=== PATIENT | male | born 1935 | race Caucasian/White ===

== ENCOUNTER 2016-12-07 23:33 | Inpatient (IN) | payer OTHER, MEDICARE ==
[~2016-12-07] VITALS: Ht 182.9 cm; Wt 99.8 kg
[2016-12-08 00:32] LABS: BASOPHIL % 0.3 % (0-2); PLATELET COUNT 214 x10^3mcL (130-400); RED CELL DISTRIBUTION WIDTH 14.4 % (11.5-14.5)
[2016-12-08 00:42] LABS: CALCIUM 8.6 mg/dL (8.5-10.1); CARBON DIOXIDE 26.4 mmol/L (21-32); CHLORIDE SERUM 105 mmol/L (98-107); CREATININE SERUM 1.1 mg/dL (0.7-1.3); GLUCOSE SERUM 155 mg/dL (74-106); POTASSIUM SERUM 3.2 mmol/L (3.5-5.1); SODIUM SERUM 143 mmol/L (136-145)
[2016-12-08 00:53] LABS: ALBUMIN 3.4 g/dL (3.4-5.0); ALKALINE PHOSPHATASE 68 U/L (46-116); ALT/SGPT 20 U/L (16-63); AST/SGOT 19 U/L (15-37); BILIRUBIN TOTAL 0.4 mg/dL (0.20-1.00); C REACTIVE PROTEIN 0.5 mg/dL (<=0.9); TOTAL PROTEIN, SERUM 6.5 g/dL (6.4-8.2)
[2016-12-08 00:55] LABS: T3 TOTAL 1.02 ng/mL
[2016-12-08 01:03] LABS: FREE T4 0.97 ng/dL (0.76-1.46); FREE THYROXINE INDEX 2.5 ug/dL (1.4-4.5); T4(THYROXINE) 6.2 ug/dL (4.7-13.3)
[2016-12-08 01:04] LABS: CK-MB 4.3 ng/mL (0-3.6)
[2016-12-08 01:23] LABS: ERYTHROCYTE SED RATE 16 mm/hr (0-20)
[2016-12-08] MEDS ORDERED: TOPROL XL25 MG PO (02:08)
[2016-12-08] MEDS ORDERED: EC NAPROSYN500 MG PO (02:09)
[2016-12-08 02:31] LABS: BASOPHIL % 0.1 % (0-2); PLATELET COUNT 187 x10^3mcL (130-400); RED CELL DISTRIBUTION WIDTH 14.1 % (11.5-14.5)
[2016-12-08 04:02] LABS: MAGNESIUM 2.1 mg/dL (1.8-2.4); PHOSPHOROUS 3.8 mg/dL (2.5-4.9)
[2016-12-08 04:03] LABS: CHOLESTEROL/HDL RATIO 3.5
[2016-12-08 04:10] LABS: UA SPECIFIC GRAVITY >=1.030 (1.005-1.035); microscopic required? YES; urine erythrocyte NEGATIVE (NEGATIVE)
[2016-12-08 04:22] VITALS: BP 109/77
[2016-12-08 04:55] VITALS: BP 108/76
[2016-12-08 05:49] LABS: BASOPHIL % 0.3 % (0-2); PLATELET COUNT 172 x10^3mcL (130-400); RED CELL DISTRIBUTION WIDTH 14.1 % (11.5-14.5)
[2016-12-08 09:54] VITALS: BP 101/66
[2016-12-08 17:30] VITALS: BP 110/72
[2016-12-08 21:23] VITALS: BP 122/69
[2016-12-09 05:57] VITALS: BP 121/72
[2016-12-09 07:35] LABS: BASOPHIL % 0.4 % (0-2); PLATELET COUNT 165 x10^3mcL (130-400); RED CELL DISTRIBUTION WIDTH 14.2 % (11.5-14.5)
[2016-12-09 07:39] LABS: CARBON DIOXIDE 26.2 mmol/L (21-32); CHLORIDE SERUM 112 mmol/L (98-107); CREATININE SERUM 0.7 mg/dL (0.7-1.3); GLUCOSE SERUM 99 mg/dL (74-106); POTASSIUM SERUM 3.5 mmol/L (3.5-5.1); SODIUM SERUM 144 mmol/L (136-145)
[2016-12-09 09:57] VITALS: BP 123/70
[2016-12-09 10:28] VITALS: BP 131/72
[2016-12-09 11:29] VITALS: BP 131/72
[2016-12-09 14:05] VITALS: BP 154/80
[2016-12-09] MEDS ORDERED: BIA500 PO (14:19)
[2016-12-09] MEDS ORDERED: PEPL PO (14:20)
[2016-12-09] MEDS ORDERED: PRI20 PO (14:20)
[2016-12-09] MEDS ORDERED: LAC PO (14:21)
[2016-12-09] MEDS ORDERED: AMOXICILLIN500 M1 PO (14:21)
[2016-12-09 17:02] VITALS: BP 126/70
== END 2016-12-09 17:50 | disposition home or self-care (01) | DRG 377 ==
LOC: ED 23:33 → MU 12-08 01:44 → DU 12-08 01:44 → MU 12-09 14:13
PROVIDERS: Family Medicine; Internal Medicine Gastroenterology; Specialist; ADMIT Family Medicine
PROC: 0DB68ZX Excision of Stomach, Via Natural or Artificial Opening Endoscopic, Diagnostic (ICD-10-PCS; principal; 2016-12-08 12:00)
PROC: 0DJD8ZZ Inspection of Lower Intestinal Tract, Via Natural or Artificial Opening Endoscopic (ICD-10-PCS; 2016-12-09)
DX: K57.31 Diverticulosis of large intestine without perforation or abscess with bleeding (principal); J96.01 Acute respiratory failure with hypoxia; N17.0 Acute kidney failure with tubular necrosis; K63.3 Ulcer of intestine; J44.1 Chronic obstructive pulmonary disease with (acute) exacerbation; I42.0 Dilated cardiomyopathy; A04.8 Other specified bacterial intestinal infections; E87.6 Hypokalemia; K64.8 Other hemorrhoids; E02 Subclinical iodine-deficiency hypothyroidism; D72.829 Elevated white blood cell count, unspecified; Z68.29 Body mass index [BMI] 29.0-29.9, adult
CPT/HCPCS: 36600; 43235; 45378; 82962; 83880; 84439; C9113; J1200; J1610; J1956; J2250; J2310; J2543; J3010; J3480; J3490; J7030; J7620; Q0092

== ENCOUNTER 2018-08-03 00:15 | Inpatient (IN) | payer OTHER, MEDICARE ==
[~2018-08-03] VITALS: Ht 182.9 cm; Wt 103.4 kg
[~2018-08-03 00:15] MED LIST: AMOXICILLIN500 M1 PO; BIA500 PO; EC NAPROSYN500 MG PO; LAC PO; PEPL PO; PRI20 PO; TOPROL XL25 MG PO
[2018-08-03 00:25] VITALS: Ht 182.9 cm; Wt 103.4 kg
[2018-08-03 02:06] LABS: BASOPHIL % 0.2 % (0-2); PLATELET COUNT 217 x10^3mcL (130-400); RED CELL DISTRIBUTION WIDTH 16.9 % (11.5-14.5)
[2018-08-03 02:13] LABS: CALCIUM 8.8 mg/dL (8.5-10.1); CARBON DIOXIDE 30.7 mmol/L (21-32); CHLORIDE SERUM 107 mmol/L (98-107); CREATININE SERUM 0.8 mg/dL (0.7-1.3); GLUCOSE SERUM 109 mg/dL (74-106); POTASSIUM SERUM 3.8 mmol/L (3.5-5.1); SODIUM SERUM 144 mmol/L (136-145)
[2018-08-03 02:18] LABS: ALBUMIN 3.2 g/dL (3.4-5.0); ALKALINE PHOSPHATASE 93 U/L (46-116); ALT/SGPT 11 U/L (16-63); AST/SGOT 21 U/L (15-37); BILIRUBIN TOTAL 0.42 mg/dL (0.20-1.00); LIPASE 167 IU/L (73-393); TOTAL PROTEIN, SERUM 6.9 g/dL (6.4-8.2)
[2018-08-03 03:16] LABS: CHOLESTEROL/HDL RATIO 3.7; PHOSPHOROUS 3.8 mg/dL (2.5-4.9)
[2018-08-03 05:28] LABS: BASOPHIL % 0.3 % (0-2); PLATELET COUNT 214 x10^3mcL (130-400)
[2018-08-03 05:32] LABS: RED CELL DISTRIBUTION WIDTH 17.3 % (11.5-14.5)
[2018-08-03 05:44] LABS: CALCIUM 8.7 mg/dL (8.5-10.1); CARBON DIOXIDE 32.1 mmol/L (21-32); CHLORIDE SERUM 106 mmol/L (98-107); CREATININE SERUM 0.7 mg/dL (0.7-1.3); GLUCOSE SERUM 117 mg/dL (74-106); SODIUM SERUM 143 mmol/L (136-145)
[2018-08-03 07:39] LABS: microscopic required? NO
[2018-08-03 07:57] LABS: AMPHETAMINE QUAL UR NONE DETECTED (See below)
[2018-08-03 08:02] LABS: UA SPECIFIC GRAVITY >=1.030 (1.005-1.035); urine erythrocyte NEGATIVE (NEGATIVE)
[2018-08-03 08:30] VITALS: BP 141/80
[2018-08-03 13:18] VITALS: BP 135/79
[2018-08-03 15:30] VITALS: BP 102/73
[2018-08-03 21:21] VITALS: BP 107/69
[2018-08-04 05:05] VITALS: BP 125/74
[2018-08-04 06:59] LABS: BASOPHIL % 0.9 % (0-2); PLATELET COUNT 208 x10^3mcL (130-400)
[2018-08-04 07:24] LABS: CALCIUM 8.7 mg/dL (8.5-10.1); CARBON DIOXIDE 29.3 mmol/L (21-32); CHLORIDE SERUM 102 mmol/L (98-107); CREATININE SERUM 0.7 mg/dL (0.7-1.3); GLUCOSE SERUM 82 mg/dL (74-106); MAGNESIUM 1.8 mg/dL (1.8-2.4); PHOSPHOROUS 2.7 mg/dL (2.5-4.9); POTASSIUM SERUM 3.7 mmol/L (3.5-5.1); SODIUM SERUM 137 mmol/L (136-145)
[2018-08-04 09:32] VITALS: BP 118/63
[2018-08-04 14:24] VITALS: BP 114/71
[2018-08-04 17:16] VITALS: BP 124/74
[2018-08-04 19:35] LABS: BASOPHIL % 0.2 % (0-2); PLATELET COUNT 232 x10^3mcL (130-400)
[2018-08-04 19:37] LABS: RED CELL DISTRIBUTION WIDTH 16.8 % (11.5-14.5)
[2018-08-04 19:55] LABS: CALCIUM 9.3 mg/dL (8.5-10.1); CARBON DIOXIDE 30.4 mmol/L (21-32); CHLORIDE SERUM 101 mmol/L (98-107); CREATININE SERUM 0.9 mg/dL (0.7-1.3); GLUCOSE SERUM 132 mg/dL (74-106); MAGNESIUM 2.1 mg/dL (1.8-2.4); PHOSPHOROUS 2.5 mg/dL (2.5-4.9); SODIUM SERUM 137 mmol/L (136-145)
[2018-08-04 21:08] VITALS: BP 130/83
[2018-08-05 05:44] VITALS: BP 151/86
[2018-08-05 06:00] VITALS: BP 118/72
[2018-08-05 06:59] LABS: CALCIUM 8.9 mg/dL (8.5-10.1); CARBON DIOXIDE 30.4 mmol/L (21-32); CHLORIDE SERUM 102 mmol/L (98-107); CREATININE SERUM 0.8 mg/dL (0.7-1.3); GLUCOSE SERUM 80 mg/dL (74-106); POTASSIUM SERUM 3.4 mmol/L (3.5-5.1); SODIUM SERUM 140 mmol/L (136-145)
[2018-08-05 07:02] LABS: BASOPHIL % 0.4 % (0-2); PLATELET COUNT 206 x10^3mcL (130-400); RED CELL DISTRIBUTION WIDTH 16.6 % (11.5-14.5)
[2018-08-05 09:01] VITALS: BP 117/45
[2018-08-05] MEDS ORDERED: COL100 PO (09:04)
[2018-08-05] MEDS ORDERED: MIRALAX17 GM/Dose PO (09:12)
[2018-08-05 10:15] VITALS: BP 115/83
[2018-08-05 10:51] VITALS: BP 115/83
== END 2018-08-05 12:05 | disposition home or self-care (01) | DRG 377 ==
LOC: ED 00:15 → DU 02:24
PROVIDERS: Emergency Medicine; Family Medicine; General Practice
DX: K92.1 Melena (principal); N17.0 Acute kidney failure with tubular necrosis; D62 Acute posthemorrhagic anemia; E44.1 Mild protein-calorie malnutrition; K59.00 Constipation, unspecified; K57.30 Diverticulosis of large intestine without perforation or abscess without bleeding; I10 Essential (primary) hypertension; Z68.30 Body mass index [BMI] 30.0-30.9, adult
CPT/HCPCS: 87046; 87046-59; C9113; J2405; J3010; Q0092

== ENCOUNTER 2019-07-13 11:08 | Inpatient (IN) | payer OTHER, MEDICARE ==
[~2019-07-13] VITALS: Ht 177.8 cm; Wt 108.9 kg
[~2019-07-13 11:08] MED LIST changes: +COL100 PO; +MIRALAX17 GM/Dose PO
[2019-07-13 11:15] VITALS: Ht 177.8 cm; Wt 108.9 kg
[2019-07-13 12:03] LABS: BASOPHIL % 0.2 % (0-2); PLATELET COUNT 210 x10^3mcL (130-400)
[2019-07-13 12:06] LABS: RED CELL DISTRIBUTION WIDTH 14.6 % (11.5-14.5)
[2019-07-13 12:29] LABS: CALCIUM 7.7 mg/dL (8.5-10.1); CARBON DIOXIDE 28.4 mmol/L (21-32); CHLORIDE SERUM 107 mmol/L (98-107); CREATININE SERUM 0.7 mg/dL (0.7-1.3); GLUCOSE SERUM 113 mg/dL (74-106); POTASSIUM SERUM 3.3 mmol/L (3.5-5.1); SODIUM SERUM 141 mmol/L (136-145)
[2019-07-13 12:33] LABS: ALKALINE PHOSPHATASE 74 U/L (46-116); ALT/SGPT 12 U/L (16-63); AST/SGOT 13 U/L (15-37); BILIRUBIN TOTAL 0.38 mg/dL (0.20-1.00)
[2019-07-13 12:36] LABS: ALBUMIN 2.9 g/dL (3.4-5.0); TOTAL PROTEIN, SERUM 6.1 g/dL (6.4-8.2)
[2019-07-13 13:37] LABS: MAGNESIUM 1.7 mg/dL (1.8-2.4); PHOSPHOROUS 2.9 mg/dL (2.5-4.9)
[2019-07-13 14:31] VITALS: BP 114/76
[2019-07-13 21:41] VITALS: BP 109/66
[2019-07-14 05:48] VITALS: BP 119/72
[2019-07-14 06:48] LABS: BASOPHIL % 0.4 % (0-2); PLATELET COUNT 200 x10^3mcL (130-400)
[2019-07-14 06:51] LABS: CALCIUM 8.1 mg/dL (8.5-10.1); CARBON DIOXIDE 29.7 mmol/L (21-32); CHLORIDE SERUM 107 mmol/L (98-107); CREATININE SERUM 0.6 mg/dL (0.7-1.3); GLUCOSE SERUM 96 mg/dL (74-106); POTASSIUM SERUM 3.9 mmol/L (3.5-5.1); SODIUM SERUM 143 mmol/L (136-145)
[2019-07-14 07:30] LABS: RED CELL DISTRIBUTION WIDTH 14.6 % (11.5-14.5)
[2019-07-14 09:00] VITALS: BP 97/75
[2019-07-14 13:42] VITALS: BP 121/76
[2019-07-14 16:27] VITALS: BP 133/74
[2019-07-14 17:25] LABS: BASOPHIL % 0.2 % (0-2); PLATELET COUNT 193 x10^3mcL (130-400)
[2019-07-14 17:27] LABS: RED CELL DISTRIBUTION WIDTH 14.7 % (11.5-14.5)
[2019-07-14 21:03] VITALS: BP 118/76
[2019-07-15 05:16] VITALS: BP 132/80
[2019-07-15 06:27] LABS: CALCIUM 8.5 mg/dL (8.5-10.1); CARBON DIOXIDE 29.6 mmol/L (21-32); CHLORIDE SERUM 108 mmol/L (98-107); CREATININE SERUM 0.6 mg/dL (0.7-1.3); GLUCOSE SERUM 90 mg/dL (74-106); SODIUM SERUM 143 mmol/L (136-145)
[2019-07-15 06:51] LABS: BASOPHIL % 0.3 % (0-2); PLATELET COUNT 195 x10^3mcL (130-400)
[2019-07-15 09:06] VITALS: BP 126/86
[2019-07-15] MEDS ORDERED: MINO PO (12:39)
[2019-07-15] MEDS ORDERED: NATURAL IRON65 MG PO (12:40)
[2019-07-15] MEDS ORDERED: METP PO (12:40)
[2019-07-15] MEDS ORDERED: LEVAQUIN750 MG PO (12:42)
[2019-07-15 12:50] VITALS: BP 126/86
[2019-07-15 13:18] VITALS: BP 114/67
== END 2019-07-15 14:55 | disposition home or self-care (01) | DRG 377 ==
LOC: ED 11:08 → DU 13:10
PROVIDERS: Emergency Medicine; Internal Medicine Gastroenterology; ADMIT Internal Medicine
PROC: 0W3P8ZZ Control Bleeding in Gastrointestinal Tract, Via Natural or Artificial Opening Endoscopic (ICD-10-PCS; principal; 2019-07-15)
DX: K57.33 Diverticulitis of large intestine without perforation or abscess with bleeding (principal); J18.9 Pneumonia, unspecified organism; E87.6 Hypokalemia; I95.89 Other hypotension; I71.4 Abdominal aortic aneurysm, without rupture; I72.3 Aneurysm of iliac artery; I10 Essential (primary) hypertension; M19.90 Unspecified osteoarthritis, unspecified site
CPT/HCPCS: 45378; 90658; 90732; C9113; G0378; J0171; J0696; J1200; J1610; J1940; J2250; J2310; J2543; J2916; J3010; J3480; J3490; J7030; J7050; P9047; Q0092

== ENCOUNTER 2019-07-16 11:01 | Inpatient (IN) | payer OTHER, MEDICARE ==
[~2019-07-16] VITALS: Ht 182.9 cm; Wt 100.0 kg
[~2019-07-16 11:01] MED LIST changes: +LEVAQUIN750 MG PO; +METP PO; +MINO PO; +NATURAL IRON65 MG PO
[2019-07-16 11:07] VITALS: Ht 182.9 cm; Wt 100.0 kg
[2019-07-16 11:59] LABS: BASOPHIL % 0.2 % (0-2); PLATELET COUNT 195 x10^3mcL (130-400)
[2019-07-16 12:06] LABS: RED CELL DISTRIBUTION WIDTH 14.7 % (11.5-14.5)
[2019-07-16 12:10] LABS: ALKALINE PHOSPHATASE 63 U/L (46-116); ALT/SGPT 12 U/L (16-63); AST/SGOT 18 U/L (15-37); BILIRUBIN TOTAL 0.2 mg/dL (0.20-1.00); CARBON DIOXIDE 26.8 mmol/L (21-32); CHLORIDE SERUM 104 mmol/L (98-107); CREATININE SERUM 0.8 mg/dL (0.7-1.3); GLUCOSE SERUM 102 mg/dL (74-106); POTASSIUM SERUM 3.3 mmol/L (3.5-5.1)
[2019-07-16 12:11] LABS: ALBUMIN 2.8 g/dL (3.4-5.0); TOTAL PROTEIN, SERUM 5.8 g/dL (6.4-8.2)
[2019-07-16 12:26] LABS: SODIUM SERUM 141 mmol/L (136-145)
[2019-07-16 13:51] LABS: MAGNESIUM 1.7 mg/dL (1.8-2.4); PHOSPHOROUS 2.7 mg/dL (2.5-4.9)
[2019-07-16 14:27] VITALS: BP 103/66
[2019-07-16 16:03] VITALS: BP 98/63
[2019-07-16 22:01] VITALS: BP 108/57
[2019-07-17 05:34] VITALS: BP 114/66
[2019-07-17 06:35] LABS: BASOPHIL % 0.5 % (0-2); PLATELET COUNT 187 x10^3mcL (130-400)
[2019-07-17 07:08] LABS: RED CELL DISTRIBUTION WIDTH 15.8 % (11.5-14.5)
[2019-07-17 08:18] VITALS: BP 132/62
[2019-07-17 10:24] LABS: CALCIUM 8.2 mg/dL (8.5-10.1); CARBON DIOXIDE 27.9 mmol/L (21-32); CHLORIDE SERUM 107 mmol/L (98-107); CREATININE SERUM 0.7 mg/dL (0.7-1.3); GLUCOSE SERUM 96 mg/dL (74-106); MAGNESIUM 1.8 mg/dL (1.8-2.4); POTASSIUM SERUM 3.5 mmol/L (3.5-5.1); SODIUM SERUM 144 mmol/L (136-145)
[2019-07-17 11:57] VITALS: BP 115/61
[2019-07-17 16:03] VITALS: BP 133/77
[2019-07-17 20:24] VITALS: BP 126/72
[2019-07-18 05:46] VITALS: BP 112/60
[2019-07-18 06:32] LABS: BASOPHIL % 0.3 % (0-2); PLATELET COUNT 206 x10^3mcL (130-400)
[2019-07-18 06:38] LABS: RED CELL DISTRIBUTION WIDTH 15.6 % (11.5-14.5)
[2019-07-18 06:44] LABS: CALCIUM 8.1 mg/dL (8.5-10.1); CARBON DIOXIDE 30.1 mmol/L (21-32); CHLORIDE SERUM 107 mmol/L (98-107); CREATININE SERUM 0.7 mg/dL (0.7-1.3); GLUCOSE SERUM 85 mg/dL (74-106); POTASSIUM SERUM 3.4 mmol/L (3.5-5.1); SODIUM SERUM 143 mmol/L (136-145)
[2019-07-18 09:02] VITALS: BP 123/63
[2019-07-18 11:15] VITALS: BP 128/92
[2019-07-18 13:09] VITALS: BP 109/77
[2019-07-18 17:33] VITALS: BP 101/59
[2019-07-18 20:41] VITALS: BP 100/57
[2019-07-19 05:39] VITALS: BP 112/72
[2019-07-19 09:09] VITALS: BP 104/63
[2019-07-19] MEDS ORDERED: MIRALAX17 GM/Dose PO (10:22)
[2019-07-19 11:09] VITALS: BP 104/63
== END 2019-07-19 13:00 | disposition home or self-care (01) | DRG 377 ==
LOC: ED 11:01 → DU 12:56
PROVIDERS: Emergency Medicine; Internal Medicine Gastroenterology; ADMIT Internal Medicine
PROC: 0DJD8ZZ Inspection of Lower Intestinal Tract, Via Natural or Artificial Opening Endoscopic (ICD-10-PCS; principal; 2019-07-18 09:30)
DX: K57.33 Diverticulitis of large intestine without perforation or abscess with bleeding (principal); J18.9 Pneumonia, unspecified organism; E87.6 Hypokalemia; I10 Essential (primary) hypertension; I71.4 Abdominal aortic aneurysm, without rupture; I72.3 Aneurysm of iliac artery; M19.90 Unspecified osteoarthritis, unspecified site
CPT/HCPCS: 45330; C9113; G0378; J1200; J1610; J1956; J2250; J2310; J2916; J3010; J3490; J7030; P9016; Q0092

== ENCOUNTER 2020-09-24 03:45 | Inpatient (IN) | payer OTHER, MEDICARE, SELFPAY ==
[~2020-09-24] VITALS: Ht 182.9 cm; Wt 90.7 kg
[2020-09-24 03:46] VITALS: Ht 182.9 cm; Wt 90.7 kg
--- NOTE | 2020-09-24 04:04 | NUR ---
MSE COMPLETED BY MD CAVAZOS
[2020-09-24 05:05] LABS: CALCIUM 8.5 mg/dL (8.5-10.1); CARBON DIOXIDE 28.2 mmol/L (21-32); CHLORIDE SERUM 93 mmol/L (98-107); CREATININE SERUM 0.8 mg/dL (0.7-1.3); GLUCOSE SERUM 88 mg/dL (74-106)
[2020-09-24 05:17] LABS: BASOPHIL % 0.8 % (0.2-1.5); PLATELET COUNT 142 x10^3mcL (152-348); RED CELL DISTRIBUTION WIDTH 13.2 % (12.1-16.2)
[2020-09-24 05:28] LABS: ALKALINE PHOSPHATASE 43 U/L (46-116); ALT/SGPT 52 U/L (16-63); AST/SGOT 77 U/L (15-37); BILIRUBIN TOTAL 0.36 mg/dL (0.20-1.00); LACTIC DEHYDROGENASE (LDH) 404 U/L (100-190); TOTAL PROTEIN, SERUM 6.6 g/dL (6.4-8.2)
[2020-09-24 05:29] LABS: POTASSIUM SERUM 3.5 mmol/L (3.5-5.1); SODIUM SERUM 135 mmol/L (136-145)
[2020-09-24 05:30] LABS: UA SPECIFIC GRAVITY 1.025 (1.005-1.035); microscopic required? YES; urine erythrocyte 2+ (NEGATIVE)
--- NOTE | 2020-09-24 06:06 | NUR ---
CRISTAL FROM LAB CALLED REGARDING PTS COVID VANGIE, PER CRISTAL PT HAS TO BE RESWABBED FOR COVID VANGIE DUE TO TEST COMING UP INVALID. PT RE-SWABBED AND SPECIMEN WALKED TO LAB AND GIVEN TO CRISTAL.
--- NOTE | 2020-09-24 07:15 | NUR ---
REPORT GIVEN TO CE CAMACHO. CE CAMACHO TO ASSUME CARE OF PT.
--- NOTE | 2020-09-24 07:30 | NUR ---
FIRST CONTACT WITH PT. PT STATED HE ACCIDENTLY URINATED IN BED. BED LINENS AND GOWN WERE CHANGED. PT MOVED UP IN BED AND GIVEN WARM BLANKET. PT STATES HE IS COMFORTABLE. PT REMAINS ON 6L OXYGEN VIA N/C, FULL CM AND PULSE OX.
--- NOTE | 2020-09-24 08:48 | NUR ---
SPOKE WITH RESIDENT REGARDING 0900 DECADRON. HE STATED TO SKIP MED D/T ALREADY GIVEN AT 0500.
[2020-09-24 08:57] LABS: BASOPHIL % 0.3 % (0.2-1.5); PLATELET COUNT 137 x10^3mcL (152-348); RED CELL DISTRIBUTION WIDTH 13.4 % (12.1-16.2)
--- NOTE | 2020-09-24 09:31 | NUR ---
PT MEDICATED PER ADMIT ORDERS. PT IS AWAKE, ALERT, RESP E/U WITH NAD NOTED. STATES HE IS COMFORTABLE WITH NO ADDITIONAL COMPLAINTS. REMAINS ON 6L VIA N/C
--- NOTE | 2020-09-24 11:06 | NUR ---
ATTEMPTED TO CALL REPORT. MT STATED RN WAS WITH ANOTHER PT AND HE WILL CALL ME BACK.
--- NOTE | 2020-09-24 11:10 | NUR ---
REPORT GIVEN TO DOUG DE DIOS TO ASSUME CARE OF PT.
--- NOTE | 2020-09-24 11:14 | NUR ---
UNABLE TO OBATIN ABG. PT REFUSED AFTERWARDS. RESIDENT NOTIFIED TO CANCEL ORDER
[2020-09-24 11:17] VITALS: BP 190/81
--- NOTE | 2020-09-24 11:48 | NUR ---
RECEIVED PT FROM ED VIA [facility] ACCOMPANIED BY TWO ED NURSES. PT ADMITTED FOR COVID POSITIVE, HYPOXIA AND PNEUMONIA. PT'S MEDICAL HX IS DIVERTICULITIS AND ARTHRITIS. PT IS A/OX4. ABLE TO MAKE NEEDS KNOWN. DENIES CALDERÓN/DIZZINESS. LUNG SOUNDS DIMINISHED. BREATHING E/U ON . SATURATIG AT 90%. TELE #4. DENIES CHEST PAIN OR PALPITATIONS. PULSES EVEN AND PALPABLE. NO EDEMA NOTED. NORMOACTIVE BSX4. ABD SOFT AND ROUND. DENIES N/V/D. VOIDS FREELY. URINAL BY BEDSIDE. AMBULATORY WITH ASSIST BASELINE. SKIN INTACT. NO C/O PAIN AT THIS TIME. IV 20G TO R HAND. FLUSHES WITH NO DIFFICULTY. BED AT LOWEST POSITION. CALL BUTTON WITHIN REACH. DROPLET/CONTACT PRECAUTION OBSERVED. WILL CONTINUE TO MONITOR. ADMISSION VS: 97.6, 109/69, 73, 24, 90% RA
[2020-09-24 12:19] LABS: CALCIUM 8.6 mg/dL (8.5-10.1); CARBON DIOXIDE 25.4 mmol/L (21-32); CHLORIDE SERUM 105 mmol/L (98-107); CREATININE SERUM 0.8 mg/dL (0.7-1.3); GLUCOSE SERUM 94 mg/dL (74-106); POTASSIUM SERUM 3.5 mmol/L (3.5-5.1); SODIUM SERUM 141 mmol/L (136-145)
[2020-09-24 14:19] VITALS: BP 109/69
[2020-09-24 17:34] VITALS: BP 138/86
[2020-09-24 21:01] VITALS: BP 119/71
[2020-09-25 04:31] VITALS: BP 117/63
--- NOTE | 2020-09-25 07:33 | NUR ---
RECEIVED PT FROM PM SHIFT. PT IS AWAKE AND RESTING COMFORTABLY AT THIS TIME. NO FACIAL DISTRESS OR SOB NOTED. PT IS A/OX4. ABLE TO MAKE NEEDS KNOWN. DENIES CALDERÓN/DIZZINESS. LUNG SOUNDS DIMINISHED. BREATHING E/U ON 3L NC. TELE #4. DENIES CHEST PAIN OR PALPITATIONS. PALPABLE PULSES. NO EDEMA NOTED. ACTIVE BSX4. ABD SOFT AND ROUND. DENIES N/V/D. VOIDS FREELY. URINAL AND BSC BY BEDSIDE. AMBULATORY BASELINE. SKIN INTACT. STILL C/O PAIN TO BACK. ICE PACKS AND ADDITIONAL PILLOW PROVIDED. IV 20G TO R HAND. SL. FLUSHES WITH NO DIFFICULTY. BED AT LOWEST POSITION. CALL BUTTON WITHIN REACH. DROPLET/CONTACT PRECAUTION OBSERVED. WILL CONTINUE TO MONITOR.
[2020-09-25 08:03] LABS: ALKALINE PHOSPHATASE 39 U/L (46-116); ALT/SGPT 54 U/L (16-63); AST/SGOT 77 U/L (15-37); BILIRUBIN TOTAL 0.38 mg/dL (0.20-1.00); CALCIUM 8.7 mg/dL (8.5-10.1); CARBON DIOXIDE 30.8 mmol/L (21-32); CHLORIDE SERUM 101 mmol/L (98-107); CREATININE SERUM 0.7 mg/dL (0.7-1.3); GLUCOSE SERUM 89 mg/dL (74-106); POTASSIUM SERUM 3.2 mmol/L (3.5-5.1); SODIUM SERUM 138 mmol/L (136-145); TOTAL PROTEIN, SERUM 6.8 g/dL (6.4-8.2)
[2020-09-25 08:05] LABS: ALBUMIN 2.9 g/dL (3.4-5.0)
[2020-09-25 09:30] VITALS: BP 127/77
--- NOTE | 2020-09-25 10:25 | NUR ---
PT MOVED FROM 210A TO 203A WITH ALL PERSONAL BELONGINGS. ORIENTED PT TO HIS NEW ROOM AND ENVIRONMENT. WILL CONTINUE TO MONITOR.
[2020-09-25 11:31] LABS: BASOPHIL % 0.3 % (0.2-1.5); PLATELET COUNT 156 x10^3mcL (152-348); RED CELL DISTRIBUTION WIDTH 13.4 % (12.1-16.2)
--- NOTE | 2020-09-25 12:44 | NUR ---
INFORMED DR CHOI ABOUT PATIENT'S LOW POTASSIUM LEVEL. DR CHOI GAVE VERBAL ORDER OF POTASSIUM 40 MEQ ONE TIME ONLY. NOTED AND CARRIED OUT.
[2020-09-25 14:15] VITALS: BP 131/80
[2020-09-25] MEDS ORDERED: COZ50 PO (16:09)
[2020-09-25] MEDS ORDERED: DECADRON6 MG PO (16:12)
[2020-09-25 17:22] VITALS: BP 126/80
--- NOTE | 2020-09-25 18:11 | NUR ---
NO ACUTE DISTRESS NOTED DURING SHIFT. WILL ENDORSE CARE TO PM SHIFT FOR CONTINUITY OF CARE.
[2020-09-25 20:35] VITALS: BP 148/94
[2020-09-26 04:45] VITALS: BP 144/91
--- NOTE | 2020-09-26 06:15 | NUR ---
2200: BLOOD BANK NOTIFIED PATIENT'S PLASMA WAS READY. 0030: WENT TO EXPANDED DUTY DENTAL ASSISTANT PLASMA FROM BLOOD BANK, WAS NOTIFIED IT WILL BE READY IN AN HOUR. 95225: FOLLOWED UP WITH [facility]- THEY NOTIFIED THIS AUTHOR, THEY WILL CALL WHEN PLASMA IS READY. 0615: PER BLOOD BANK PATIENT'S PLASMA IS NOT YET READY FOR EXPANDED DUTY DENTAL ASSISTANT
--- NOTE | 2020-09-26 07:30 | NUR ---
RECEIVED PT FROM DIAL REFINISHER. PT IS VERY ANXIOUS AND WANT TO GO HOME. BRINEYARD SUPERVISOR SPOKE WITH PT BUT PT STILL WANT TO LEAVE, SIGN AMA. BRINEYARD SUPERVISOR SAID HAVE HIM SIGN AMA. PT IS DESATTING IN 79 TO 84% IN RA AND HAVING SOB, 85% IN 3L, STILL HAVING MILD SOB. INCREASE UP TO 4L, 86%, 5L 87%. SPOKE WITH RT AND INCRAESE O2 TO 6L 88%. PT STILL ARGUING HE WANT TO GO HOME. SPOKE WITH , SHE INITIALLY SAID LET HIM COME HOME. INFORMED CHARGE NURSE, CN SPOKE WITH CASEMANAGER AND CASEMANAGER SPOKE WITH PT'S AND SHE SPOKE WITH PT. PT STILL SAYING HE WANT TO GO HOME AND REMOVED TELE MONITOR. PT IS A/O X4. HAVING SOB AND PT TRYING TO GET OUT OF BED. STAYING WITH PT NOW.
[2020-09-26 08:23] VITALS: BP 115/85
[2020-09-26 08:31] LABS: BILIRUBIN DIRECT 0.14 mg/dL (0.0-0.2); BILIRUBIN TOTAL 0.4 mg/dL (0.20-1.00); TOTAL PROTEIN, SERUM 6.9 g/dL (6.4-8.2)
--- NOTE | 2020-09-26 09:00 | NUR ---
NURSE SPOKE WITH PT ABOUT HIS CONDITION AND RISK OF LEAVING WITH OUT O2. SPOKE WITH SHE SAID THEY HAVE NOT RECEIVE HOME O2 STILL. PT STILL DESATTING IN 6L O2 88%, NO SOB THIS TIME. AFTER TALK TO PT FOR 2HR, HE FINALL AGREED TO STAY IN THE HOSPITAL UNTIL O2 ARRIVE AT HOME BUT HE DOESNOT WANT TO SPEND NIGHT HERE. CALLED AND INFORMED DRAFTER (CAD) ELECTRONIC MARIE ABOUT PT'S CONDITION AND ALSO INFORMED DRAFTER (CAD) ELECTRONIC ABOUT SPO2 88% IN 6L. SHE SAID IF PT SATTING 90 TO 91% IN O2 LESS THAN 6L, HE CAN GO OTHER [facility] MAY HAVE TO STAY. INFORMED WILL CALL HER AND UPDATE WITH HER. WILL GIVE PLASMA SOON. CHARGE NURSE AWARE.
[2020-09-26 09:35] LABS: BASOPHIL % 0.1 % (0.2-1.5); PLATELET COUNT 181 x10^3mcL (152-348); RED CELL DISTRIBUTION WIDTH 13.3 % (12.1-16.2)
[2020-09-26 09:42] LABS: CARBON DIOXIDE 29.9 mmol/L (21-32); CHLORIDE SERUM 100 mmol/L (98-107); CREATININE SERUM 0.7 mg/dL (0.7-1.3); GLUCOSE SERUM 122 mg/dL (74-106); POTASSIUM SERUM 3.2 mmol/L (3.5-5.1); SODIUM SERUM 136 mmol/L (136-145)
[2020-09-26 11:46] VITALS: BP 164/105
--- NOTE | 2020-09-26 12:40 | NUR ---
PLASMA STARTED. PRE TRANFUSION V/S AND V/S AFTER 15 MIN IS STABLE AND RECORDED IN TRANSFUSION RECORD. TYLENOL PO WAS GIVEN AT 1228 FOR BODYACHE. WILL REASSESS. NO REACTIONS NOTED SO FAR. WILL CONTINUE MONITOR.
--- NOTE | 2020-09-26 13:10 | NUR ---
PLASMA FINISHED. V/S CHECKED AFTER TRANSFUSION, STABLE AND RECORDED IN TRANSFUSION RECORD. NO REACTIONS NOTED. PT IS SLEEPING, BUT WAKING UP SOON AND GOING BACK TO SLEEP. WHILE ASLEEP PT SPO2 IN 5L 94% BUT SOON PT WOKE UP SPO2 DOWN TO 88%. ANXIETY IS LESS NOW AFTER THE ATIVAN PO, PT KEEP CALLING HIS , KEEP ASKING O2 DELIVER YET. FLUSHED IV WITH NS 100ML/HR FOR 10MIN AND SL THE IV. BED ALARM ON AND SAFTEY PRECAUTIONS ARE IN PLACE. WILL MONITOR.
--- NOTE | 2020-09-26 13:40 | NUR ---
VIRTUAL CUSTOMER ASSISTANT SAID SHE FOUND PT SITTING IN THE TOILET, HE AMBULATED HIMSELF, O2 OFF, SPO2 84% IN RA. ASSISTED PT TO GO BACK TO BED BUT PT DOESNOT WANT TO STAY IN THE BED, ASSISTED HIM SIT IN THE CHAIR. O2 BACK ON 4L, SPO2 90% THIS TIME. WILL CLOSE MONITOR THE PT.
--- NOTE | 2020-09-26 14:00 | NUR ---
PATIENT WAS OUT OF BED NAKED WALKING BY BED SIDE. PATIENT HAD REMOVED HIS NC AND HEART MONITOR. RE-HOOKED UP TELEMONIOR AND PUT ON HIS NC. HE REQUESTED TO PUT ON HIS SHORTS INSTEAD OF GOWN. ASSISTED PATIENT WITH HIS SHORTS AND BUTTON SHIRT AND PLACED TELE MONITOR IN HIS TOP'S POCKET. PATIENT REQUESTED TO SIT BED SIDE. PULLED UP CHAIR NEXT TO BED WHERE HE CAN SIT SAFELY WITH HIS NC. SAT DOWN PATIENT, HE DENIED ANY PAIN OR SOB. ENCOURAGED HIM TO STAY SEATED OR CALL FOR ASSISTANCE WHEN HE IS READY TO GET BACK IN BED. BED IS LOCKED AND IN LOWEST POSITION, CALL LIGHT IS WITHIN REACH OF CHAIR WHERE HE IS SITTING. WILL CONTINUE TO MONITOR.
--- NOTE | 2020-09-26 14:00 | NUR ---
PUT O2 DOWN TO 4L, SPO2 89 TO 90% THIS TIME. SOB ON EXERTION. WILL MONITOR.
[2020-09-26 14:18] VITALS: BP 115/69
--- NOTE | 2020-09-26 15:35 | NUR ---
PATIENT STANDING BED SIDE USING URINAL. PATIENT REMOVED HIS NC AND TELEMONITOR AGAIN. EDUCATED PATIENT ON HIS DEPENDANCY OF OXYGEN. PUT ON HIS NC AND RE-HOOKED UP TELE MONITOR. REMINDED PATIENT THAT HIS DISCHARGE WOULD BE LATER THIS AFTERNOON, HIS STATED DELIVERY OF O2 IS ESTIMATED AT AROUND [id number]. ENCOURAGED PATIENT TO SIT IN CHAIR AND GAVE HIM THE CALL LIGHT SO THAT HE CAN CALL FOR ASSISTANCE BACK IN BED WHEN READY OR PRN. BED LOCKED, IN LOWEST POSITION, CALL LIGHT WITHIN REACH OF CHAIR WHERE PATIENT WAS SITTING. WILL CONTINUE TO MONITOR.
[2020-09-26 16:31] VITALS: BP 107/71
--- NOTE | 2020-09-26 17:00 | NUR ---
PT WALKING AROUND THE BEDSIDE AREA WITH O2 4L ON, 92% SPO2, NO SOB NOTED. WALKING WITH SLOW BALANCED GAIT. NO DISTRESS NOTED. DENIES ANY PAIN.
--- NOTE | 2020-09-26 17:30 | NUR ---
PT KEEP TAKING HIS TELE OFF AND NURSE KEEP PUTTING IT ON ALL DAY. PT IS REFUSING TO PUT TELE BACK ON THIS TIME. DC HOME SOON SOON O2 ARRIVE AT HOME. DENIES CHEST PAIN. TELE RETURNED TO VIDEO TAPE DUPLICATOR.
--- NOTE | 2020-09-26 18:00 | NUR ---
CALLED AND INFORMED PT GOT O2 AT HOME. INFORMED HER PT IS READY TO GO, SHE SAID SHE WILL COME AND PICK HIM UP. PT IS STABLE. 91 TO 92% IN O2 2L N/C.
--- NOTE | 2020-09-26 18:45 | NUR ---
PT'S IS HERE TO FINANCIAL COACH PT. DC INSTRUCTIONS GIVEN. PB SIGNED AND SENT WITH PT. IV REMOVED AND DRESSING APPLIED. DENIES ANY PAIN. PRODUCTION HELPER WHEELED PT DOWN TO LOBBY. O2 4L PUT ON WITH PORTABLE O2, SPO2 92%. NO SOB NOTED. DC HOME WITH FOR PT.
== END 2020-09-26 19:00 | disposition home health service (06) | DRG 871 ==
LOC: ED 03:45 → DU 04:56 → EDBEDREQ 05:33 → DU 11:43
PROVIDERS: Emergency Medicine; Family Medicine; ADMIT Internal Medicine; ATTEND Internal Medicine
PROC: XW033E5 Introduction of Remdesivir Anti-infective into Peripheral Vein, Percutaneous Approach, New Technology Group 5 (ICD-10-PCS; 2020-09-24)
PROC: XW13325 Transfusion of Convalescent Plasma (Nonautologous) into Peripheral Vein, Percutaneous Approach, New Technology Group 5 (ICD-10-PCS; principal; 2020-09-26)
DX: A41.89 Other specified sepsis (principal); U07.1 COVID-19; J12.82 Pneumonia due to coronavirus disease 2019; J96.01 Acute respiratory failure with hypoxia; E87.1 Hypo-osmolality and hyponatremia; M19.90 Unspecified osteoarthritis, unspecified site; Z79.899 Other long term (current) drug therapy
CPT/HCPCS: 83880; 85378; 87804; 97110-GP; 97116-GP; 97530-GP; G0378; J0456; J0696; J1100; J1644; J7050; U0003